=== PATIENT | female | born 1940 | race Caucasian/White ===

== ENCOUNTER 2020-06-23 17:22 | Observation (INO) ==
[2020-06-23 18:02] LABS: Basophils % 0.4 %; Eosinophils # 0.2 K/mcL (0.0-0.6); Eosinophils % 2.8 %; Hematocrit 37.4 % (35.3-44.9); Hemoglobin 12.3 g/dL (11.5-15.4); Immature Granulocytes % 0.4 % (0-4); Lymphocytes # 1.8 K/mcL (0.6-4.6); Lymphocytes % 25.2 %; Mean Corpuscular HGB Conc 32.9 g/dL (31.6-35.5); Mean Corpuscular Hemoglobin 26.9 pg (28.0-33.3); Mean Corpuscular Volume 81.8 fL (83.0-100.0); Mean Platelet Volume 8.5 fL (9.4-12.4); Monocytes # 0.8 K/mcL (0.0-1.3); Monocytes % 10.6 %; Neutrophils # 4.3 K/mcL (1.6-8.9); Platelet Count 252 K/mcL (140-400); Red Blood Count 4.57 M/mcL (3.82-4.97); Segmented Neutrophils % 60.6 %; White Blood Count 7.1 K/mcL (4.3-11.1)
[2020-06-23 18:07] LABS: INR 0.8; Prothrombin Time 9.5 Seconds (9.4-12.1)
[2020-06-23 18:10] LABS: Activated Partial Thrombo Time 30.9 Seconds (26.0-36.0)
[2020-06-23 18:26] LABS: Alanine Aminotransferase 12 Units/L (7-52); Albumin 4.1 g/dL (3.5-5.7); Alkaline Phosphatase 71 Units/L (34-104); Aspartate Amino Transferase 20 Units/L (13-39); BUN/Creatinine Ratio 12 (6-26); Bilirubin,Direct 0.1 mg/dL (0.0-0.2); Bilirubin,Indirect 0.3 mg/dL (0.0-1.0); Bilirubin,Total 0.4 mg/dL (0.3-1.0); Blood Urea Nitrogen 17 mg/dL (8-23); Calcium 9.7 mg/dL (8.6-10.3); Carbon Dioxide 27 mEq/L (23-29); Chloride 96 mEq/L (98-107); Ethanol < 10 mg/dL (Less than 10); Globulin 2.1 g/dL (2.4-3.5); Glucose 125 mg/dL (70-105); Osmolality,Calculated 275 (280-300); Potassium 3.9 mEq/L (3.5-5.1); Sodium 131 mEq/L (136-145); Total Protein 6.2 g/dL (6.4-8.9); Troponin I < 0.03 ng/mL (< 0.04); eGFR For African Americans 43 (> 60); eGFR For Non-African Americans 36 (> 60)
[2020-06-23 18:39] LABS: Thyroid Stimulating Hormone 1.369 mcIU/mL (0.340-5.600)
[2020-06-23 19:18] LABS: Bacteria,Urine Few per hpf (None-Few); Bilirubin,Urine Negative (Negative); Blood,Urine Negative (Negative); Clarity,Urine Clear (Clear); Color,Urine Light-Yellow (Yellow); Glucose,Urine (UA) Normal (Normal); Ketones,Urine Trace mg/dL (Negative); Leukocyte Esterase,Urine Negative (Negative); Nitrite,Urine Negative (Negative); Protein,Urine >=300 mg/dL (Neg-Trace); RBC,Urine 0-3 per hpf (0-3); Specific Gravity,Urine 1.015 (1.010-1.025); Urobilinogen,Urine Normal (Normal); WBC,Urine 0-3 per hpf (0-3)
[2020-06-23 19:24] LABS: Amphetamine Screen,Urine Negative ng/mL (Cutoff=1000); Barbiturate Screen,Urine Negative ng/mL (Cutoff=200); Benzodiazepines Screen,Urine Negative ng/mL (Cutoff=200); Cannabinoid Screen,Urine Negative ng/mL (Cutoff = 50); Cocaine Screen,Urine Negative ng/mL (Cutoff= 300); Opiate Screen,Urine Negative ng/mL (Cutoff=300); Phencyclidine Screen,Urine Negative ng/mL (Cutoff=25)
[2020-06-23] MEDS ORDERED: cloNIDine HCL 0.1 MG TABLET PO ONE (19:44)
[2020-06-23] MEDS ORDERED: Naloxone 0.4 MG/ML INJ IVP PRN (20:28)
[2020-06-23] MEDS ORDERED: Ondansetron 4 MG/2 ML VIAL IVP PRN (20:28)
[2020-06-23] MEDS ORDERED: 0.9 % Sodium Chloride 1,000 ML IVC SCH (20:30)
[2020-06-23] MEDS ORDERED: Acetaminophen 325 MG TABLET PO PRN (21:24)
[2020-06-23 21:49] LABS: Sodium, Urine 86.4 mEq/L
[2020-06-24 02:00] LABS: Basophils % 0.3 %; Eosinophils % 0.4 %; Immature Granulocytes % 0.3 % (0-4); Lymphocytes # 0.9 K/mcL (0.6-4.6); Lymphocytes % 12.7 %; Mean Corpuscular HGB Conc 32.5 g/dL (31.6-35.5); Mean Corpuscular Hemoglobin 27.2 pg (28.0-33.3); Mean Corpuscular Volume 83.6 fL (83.0-100.0); Mean Platelet Volume 8.8 fL (9.4-12.4); Monocytes # 0.5 K/mcL (0.0-1.3); Monocytes % 6.9 %; Neutrophils # 5.8 K/mcL (1.6-8.9); Platelet Count 221 K/mcL (140-400); Red Blood Count 3.83 M/mcL (3.82-4.97); Red Cell Distribution Width 12.9 % (11.5-14.5); Segmented Neutrophils % 79.4 %; White Blood Count 7.3 K/mcL (4.3-11.1)
[2020-06-24 02:01] LABS: Hemoglobin 10.4 g/dL (11.5-15.4)
[2020-06-24 02:20] LABS: Albumin 3.3 g/dL (3.5-5.7); Albumin/Globulin Ratio 1.7 (1.1-2.2); Bilirubin,Total 0.4 mg/dL (0.3-1.0); Globulin 1.9 g/dL (2.4-3.5); Total Protein 5.2 g/dL (6.4-8.9)
[2020-06-24 05:55] LABS: Protein/Creatinine Ratio,Urine 42.15 mg/mg (0.00-0.20)
[2020-06-24] MEDS: Verapamil ER (24 HR) 180 MG TABLET.ER PO SCH (09:01)
[2020-06-24 12:05] LABS: Potassium,Urine 31.4 mEq/L
[2020-06-24 16:35] LABS: Complement C3 79 mg/dL (87-200)
[2020-06-24 17:22] LABS: Creatinine,Urine 97 mg/dL; Microalbumin,Urine > 1350 mg/L
[2020-06-24] MEDS: 0.9 % Sodium Chloride 1,000 ML IVC SCH (18:16)
[2020-06-25 02:00] LABS: Basophils % 0.4 %; Eosinophils # 0.1 K/mcL (0.0-0.6); Eosinophils % 2.6 %; Hematocrit 30.6 % (35.3-44.9); Hemoglobin 10.1 g/dL (11.5-15.4); Immature Granulocytes % 0.2 % (0-4); Lymphocytes # 0.9 K/mcL (0.6-4.6); Lymphocytes % 19.1 %; Mean Corpuscular Hemoglobin 27.1 pg (28.0-33.3); Mean Platelet Volume 8.7 fL (9.4-12.4); Monocytes # 0.6 K/mcL (0.0-1.3); Monocytes % 11.2 %; Neutrophils # 3.3 K/mcL (1.6-8.9); Platelet Count 193 K/mcL (140-400); Red Blood Count 3.73 M/mcL (3.82-4.97); Red Cell Distribution Width 12.9 % (11.5-14.5); Segmented Neutrophils % 66.5 %; White Blood Count 4.9 K/mcL (4.3-11.1)
[2020-06-25 02:21] LABS: Calcium 8.9 mg/dL (8.6-10.3); Potassium 3.9 mEq/L (3.5-5.1)
[2020-06-25] MEDS ORDERED: *HR* Metoprolol 5 MG/5 ML VIAL IVP ONE ×2 (04:52→05:15)
[2020-06-25] MEDS: Verapamil ER (24 HR) 180 MG TABLET.ER PO SCH (07:35)
[2020-06-25] MEDS: 0.9 % Sodium Chloride 1,000 ML IVC SCH (07:45)
[2020-06-25] MEDS: Aspirin 81 MG TAB.CHEW PO SCH (12:30)
[2020-06-26] MEDS: 0.9 % Sodium Chloride 1,000 ML IVC SCH ×2 (00:52→17:35)
[2020-06-26 03:22] LABS: Calcium 8.6 mg/dL (8.6-10.3); Potassium 3.6 mEq/L (3.5-5.1)
[2020-06-26] MEDS ORDERED: *HR* Labetalol 20 MG/4 ML SYRINGE IVP ONE (04:20)
[2020-06-26] MEDS ORDERED: cloNIDine HCL 0.1 MG TABLET PO ONE (05:12)
[2020-06-26] MEDS: Aspirin 81 MG TAB.CHEW PO SCH (08:16)
[2020-06-26] MEDS: Verapamil ER (24 HR) 180 MG TABLET.ER PO SCH (08:16)
[2020-06-27] MEDS ORDERED: cloNIDine HCL 0.1 MG TABLET PO ONE (03:42)
[2020-06-27] MEDS ORDERED: NIFEdipine 10 MG CAPSULE PO ONE (05:41)
[2020-06-27 08:32] LABS: Basophils % 0.2 %; Eosinophils # 0.2 K/mcL (0.0-0.6); Eosinophils % 3.3 %; Hematocrit 31.8 % (35.3-44.9); Hemoglobin 10.3 g/dL (11.5-15.4); Immature Granulocytes % 0.2 % (0-4); Lymphocytes # 0.7 K/mcL (0.6-4.6); Lymphocytes % 13.5 %; Mean Corpuscular HGB Conc 32.4 g/dL (31.6-35.5); Mean Corpuscular Hemoglobin 26.8 pg (28.0-33.3); Mean Corpuscular Volume 82.8 fL (83.0-100.0); Mean Platelet Volume 8.9 fL (9.4-12.4); Monocytes # 0.5 K/mcL (0.0-1.3); Monocytes % 10.8 %; Neutrophils # 3.5 K/mcL (1.6-8.9); Platelet Count 187 K/mcL (140-400); Red Blood Count 3.84 M/mcL (3.82-4.97); Red Cell Distribution Width 13.2 % (11.5-14.5); White Blood Count 4.8 K/mcL (4.3-11.1)
[2020-06-27] MEDS: Aspirin 81 MG TAB.CHEW PO SCH (08:43)
[2020-06-27] MEDS: Verapamil ER (24 HR) 180 MG TABLET.ER PO SCH (08:43)
[2020-06-27 08:51] LABS: Calcium 8.6 mg/dL (8.6-10.3); Potassium 3.7 mEq/L (3.5-5.1)
[2020-06-27] MEDS: 0.9 % Sodium Chloride 1,000 ML IVC SCH (12:19)
[2020-06-27] MEDS ORDERED: Metoprolol XL (24 HR) Succ 25 MG TAB.ER.24H PO SCH (18:00)
[2020-06-28] MEDS ORDERED: NIFEdipine 10 MG CAPSULE PO ONE (00:33)
[2020-06-28] MEDS: 0.9 % Sodium Chloride 1,000 ML IVC SCH ×2 (04:48→21:24)
[2020-06-28 07:11] LABS: Basophils % 0.2 %; Eosinophils # 0.2 K/mcL (0.0-0.6); Eosinophils % 3.1 %; Hematocrit 30.9 % (35.3-44.9); Hemoglobin 10.2 g/dL (11.5-15.4); Immature Granulocytes % 0.2 % (0-4); Lymphocytes # 0.6 K/mcL (0.6-4.6); Lymphocytes % 12.4 %; Mean Corpuscular Hemoglobin 26.8 pg (28.0-33.3); Mean Corpuscular Volume 81.3 fL (83.0-100.0); Mean Platelet Volume 9.3 fL (9.4-12.4); Monocytes # 0.5 K/mcL (0.0-1.3); Monocytes % 9.7 %; Neutrophils # 3.9 K/mcL (1.6-8.9); Platelet Count 194 K/mcL (140-400); Red Cell Distribution Width 13.3 % (11.5-14.5); Segmented Neutrophils % 74.4 %; White Blood Count 5.2 K/mcL (4.3-11.1)
[2020-06-28 07:39] LABS: Calcium 8.8 mg/dL (8.6-10.3); Potassium 3.8 mEq/L (3.5-5.1)
[2020-06-28 08:34] LABS: Total Volume 24 Hour,Urine 2.42 Liters (0.60-1.60)
[2020-06-28] MEDS: Aspirin 81 MG TAB.CHEW PO SCH (08:47)
[2020-06-28] MEDS: Verapamil ER (24 HR) 180 MG TABLET.ER PO SCH (08:47)
[2020-06-28] MEDS ORDERED: Metoprolol XL (24 HR) Succ 25 MG TAB.ER.24H PO SCH (09:00)
[2020-06-28 09:41] LABS: Total Volume 24 Hour,Urine 2.42 Liters (0.60-1.60)
[2020-06-28 09:48] LABS: Protein/Creatinine Ratio,Urine 3.57 mg/mg (0.00-0.20); Sodium, Urine 83.9 mEq/L
[2020-06-28 13:56] LABS: Serine Protease-3 Antibody 0 AU/mL (0-19)
[2020-06-28] MEDS: Metoprolol XL (24 HR) Succ 25 MG TAB.ER.24H PO SCH (21:23)
[2020-06-29 03:37] LABS: Calcium 8.7 mg/dL (8.6-10.3); Potassium 3.7 mEq/L (3.5-5.1)
[2020-06-29] MEDS: Verapamil ER (24 HR) 180 MG TABLET.ER PO SCH (05:19)
[2020-06-29] MEDS: Metoprolol XL (24 HR) Succ 25 MG TAB.ER.24H PO SCH ×2 (08:00→21:22)
[2020-06-29] MEDS: Aspirin 81 MG TAB.CHEW PO SCH (08:00)
[2020-06-29 08:53] LABS: ANA IgG by ELISA NONE DETECTED (None Detected)
[2020-06-29] MEDS: 0.9 % Sodium Chloride 1,000 ML IVC SCH (10:03)
[2020-06-29] MEDS: hydrALAZINE 10 MG TABLET PO SCH ×2 (15:57→23:07)
[2020-06-29 20:06] LABS: APTT (LE Anticoag) 43 sec (32-48); Diluted Russell Viper Venom 30 sec (33-44); PT (LE-Anticoag) 13.8 sec (12.0-15.5)
[2020-06-30 01:21] LABS: Alpha 2 Globulin (PEP) 0.75 g/dL (0.48-1.05); Beta Globulin (PEP) 0.55 g/dL (0.48-1.10)
[2020-06-30] MEDS: Verapamil ER (24 HR) 180 MG TABLET.ER PO SCH (05:08)
[2020-06-30 07:08] LABS: Calcium 9.1 mg/dL (8.6-10.3); Potassium 3.7 mEq/L (3.5-5.1)
[2020-06-30] MEDS: hydrALAZINE 10 MG TABLET PO SCH (07:32)
[2020-06-30] MEDS: Aspirin 81 MG TAB.CHEW PO SCH (07:33)
[2020-06-30] MEDS: Metoprolol XL (24 HR) Succ 25 MG TAB.ER.24H PO SCH (07:33)
[2020-06-30 12:22] LABS: Immunoglobulin A 179 mg/dL (68-408); Immunoglobulin M 62 mg/dL (35-263)
[2020-06-30 12:23] LABS: IFE Reflexed IFE Done; Immunoglobulin G 516 mg/dL (768-1632)
[2020-06-30] MEDS: hydrALAZINE 25 MG TABLET PO SCH ×2 (14:05→20:18)
[2020-07-01] MEDS ORDERED: hydrALAZINE 25 MG TABLET PO ONE (00:21)
[2020-07-01 02:19] LABS: Calcium 8.9 mg/dL (8.6-10.3); Potassium 3.7 mEq/L (3.5-5.1)
[2020-07-01] MEDS: Aspirin 81 MG TAB.CHEW PO SCH (07:52)
[2020-07-01] MEDS: Verapamil ER (24 HR) 180 MG TABLET.ER PO SCH (07:52)
[2020-07-01] MEDS: hydrALAZINE 25 MG TABLET PO SCH (07:52)
[2020-07-01] MEDS ORDERED: *HR* Midazolam HCl 2 MG/2 ML VIAL IVP ONE (09:42)
[2020-07-01] MEDS ORDERED: *HR* FentaNYL (PF) 100 MCG/2 ML VIAL IVP ONE (09:42)
[2020-07-01] MEDS ORDERED: 0.9 % Sodium Chloride 500 ML ONE (09:53)
[2020-07-01 13:05] LABS: Hematocrit 33.9 % (35.3-44.9); Hemoglobin 11.2 g/dL (11.5-15.4)
[2020-07-01 15:42] VITALS: BP 154/67
== END 2020-07-01 18:10 | disposition home health service (06) ==
LOC: EMEROOARM 17:22 → 3BNU 17:22 → SUATTDRO 20:54 → 3BNU 21:13 → 2ANU 06-30 18:23
PROVIDERS: ADMIT Student in an Organized Health Care Education/Training Program; ATTEND Internal Medicine
PROC: IRLIVER (2020-06-29 12:00)

== ENCOUNTER 2021-04-03 09:44 | Inpatient (IN) ==
[2021-04-03 11:20] LABS: Basophils % 0.5 %; Eosinophils # 0.1 K/mcL (0.0-0.6); Eosinophils % 1.9 %; Hematocrit 30.5 % (35.3-44.9); Hemoglobin 9.9 g/dL (11.5-15.4); Immature Granulocytes % 0.3 % (0-4); Lymphocytes # 0.7 K/mcL (0.6-4.6); Lymphocytes % 18.3 %; Mean Corpuscular HGB Conc 32.5 g/dL (31.6-35.5); Mean Corpuscular Hemoglobin 29.1 pg (28.0-33.3); Mean Corpuscular Volume 89.7 fL (83.0-100.0); Monocytes # 0.5 K/mcL (0.0-1.3); Monocytes % 11.9 %; Neutrophils # 2.5 K/mcL (1.6-8.9); Platelet Count 157 K/mcL (140-400); Red Cell Distribution Width 13.5 % (11.5-14.5); Segmented Neutrophils % 67.1 %; White Blood Count 3.8 K/mcL (4.3-11.1)
[2021-04-03 11:40] LABS: Alanine Aminotransferase 15 Units/L (7-52); Albumin 3.6 g/dL (3.5-5.7); Albumin/Globulin Ratio 1.6 (1.1-2.2); Alkaline Phosphatase 42 Units/L (34-104); Aspartate Amino Transferase 19 Units/L (13-39); BUN/Creatinine Ratio 17 (6-26); Bilirubin,Direct 0.1 mg/dL (0.0-0.2); Bilirubin,Indirect 0.3 mg/dL (0.0-1.0); Bilirubin,Total 0.4 mg/dL (0.3-1.0); Blood Urea Nitrogen 46 mg/dL (8-23); Calcium 9.4 mg/dL (8.6-10.3); Carbon Dioxide 18 mEq/L (23-29); Chloride 102 mEq/L (98-107); Globulin 2.2 g/dL (2.4-3.5); Glucose 87 mg/dL (70-105); Osmolality,Calculated 285 (280-300); Potassium 4.6 mEq/L (3.5-5.1); Sodium 132 mEq/L (136-145); Total Protein 5.8 g/dL (6.4-8.9); eGFR For African Americans 20 (> 60); eGFR For Non-African Americans 16 (> 60)
[2021-04-03 11:48] LABS: Troponin I < 0.03 ng/mL (< 0.04)
[2021-04-03] MEDS ORDERED: carvediloL 6.25 MG TABLET PO ONE (13:33)
[2021-04-03 14:41] LABS: Bilirubin,Urine Negative (Negative); Blood,Urine Trace (Negative); Clarity,Urine Clear (Clear); Color,Urine Light-Yellow (Yellow); Glucose,Urine (UA) Normal (Normal); Ketones,Urine Trace mg/dL (Negative); Leukocyte Esterase,Urine Negative (Negative); Mucus,Urine Few per lpf (None-Few); Nitrite,Urine Negative (Negative); PH,Urine 6.5 pH Units (5.0-8.0); Protein,Urine >=300 mg/dL (Neg-Trace); RBC,Urine 0-3 per hpf (0-3); Renal Epithelial Cells,Urine Few per hpf (None-Few); Specific Gravity,Urine 1.013 (1.010-1.025); Squamous Epithelial Cell,Urine Few per hpf (None-Few); Transitional Epi Cells,Urine Few per hpf (None-Few); Urobilinogen,Urine Normal (Normal)
[2021-04-03] MEDS ORDERED: Naloxone 0.4 MG/ML INJ IVP PRN (15:26)
[2021-04-03] MEDS ORDERED: cloNIDine HCL 0.1 MG TABLET PO ONE (17:18)
[2021-04-03] MEDS ORDERED: Verapamil ER (24 HR) 180 MG TABLET.ER PO SCH (17:30)
[2021-04-03 17:39] LABS: Prothrombin Time 11.2 Seconds (9.4-12.1)
[2021-04-03 17:41] LABS: Activated Partial Thrombo Time 28.5 Seconds (26.0-36.0)
[2021-04-03] MEDS: *HR* Heparin 5,000 UNIT/ML VIAL SQ SCH (17:48)
[2021-04-03] MEDS: hydrALAZINE 25 MG TABLET PO SCH (17:48)
[2021-04-03 18:00] LABS: Thyroid Stimulating Hormone 2.748 mcIU/mL (0.340-5.600)
[2021-04-03 18:12] LABS: Folate > 22.3 ng/mL (3.0-16.0); Vitamin B12 772 pg/mL (250-1100)
[2021-04-03] MEDS: carvediloL 6.25 MG TABLET PO SCH (20:43)
[2021-04-03] MEDS: Niacin (24 HR) 500 MG TAB.ER.24H PO SCH (20:53)
[2021-04-03] MEDS ORDERED: 0.9 % Sodium Chloride 1,000 ML ONE (22:42)
[2021-04-03] MEDS ORDERED: *HR* Atropine Sulfate 1 MG/10 ML SYRINGE IVP STA (22:42)
[2021-04-03] MEDS ORDERED: 0.9 % Sodium Chloride 1,000 ML IV ONE (22:43)
[2021-04-03] MEDS ORDERED: *HR* Atropine Sulfate 1 MG/10 ML SYRINGE ONE (22:43)
[2021-04-03] MEDS: Ondansetron 4 MG/2 ML VIAL IVP PRN (23:26)
[2021-04-03 23:33] LABS: Hematocrit 25.6 % (35.3-44.9); Hemoglobin 8.6 g/dL (11.5-15.4); Mean Corpuscular HGB Conc 33.6 g/dL (31.6-35.5); Mean Corpuscular Hemoglobin 29.8 pg (28.0-33.3); Mean Corpuscular Volume 88.6 fL (83.0-100.0); Mean Platelet Volume 8.7 fL (9.4-12.4); Platelet Count 160 K/mcL (140-400); Red Blood Count 2.89 M/mcL (3.82-4.97); Red Cell Distribution Width 13.4 % (11.5-14.5); White Blood Count 5.9 K/mcL (4.3-11.1)
[2021-04-03] MEDS: 0.9 % Sodium Chloride 1,000 ML IVC SCH (23:55)
[2021-04-03 23:56] LABS: BUN/Creatinine Ratio 16 (6-26); Blood Urea Nitrogen 49 mg/dL (8-23); Calcium 8.4 mg/dL (8.6-10.3); Carbon Dioxide 16 mEq/L (23-29); Chloride 102 mEq/L (98-107); Glucose 116 mg/dL (70-105); Osmolality,Calculated 280 (280-300); Potassium 4.6 mEq/L (3.5-5.1); Sodium 128 mEq/L (136-145); eGFR For African Americans 18 (> 60); eGFR For Non-African Americans 15 (> 60)
[2021-04-04] MEDS: hydrALAZINE 25 MG TABLET PO SCH ×3 (00:18→16:28)
[2021-04-04 00:38] LABS: Troponin I < 0.03 ng/mL (< 0.04)
[2021-04-04] MEDS ORDERED: Perflutren Lipid Microsphere 1.3 ML in 0.9 % Sodium Chloride 8.7 ML IVP PRN (04:25)
[2021-04-04] MEDS: *HR* Heparin 5,000 UNIT/ML VIAL SQ SCH ×2 (05:10→16:27)
[2021-04-04 08:06] LABS: Basophils % 0.2 %; Eosinophils % 0.2 %; Hematocrit 25.6 % (35.3-44.9); Hemoglobin 8.4 g/dL (11.5-15.4); Immature Granulocytes % 0.2 % (0-4); Lymphocytes # 0.6 K/mcL (0.6-4.6); Mean Corpuscular HGB Conc 32.8 g/dL (31.6-35.5); Mean Corpuscular Hemoglobin 29.9 pg (28.0-33.3); Mean Corpuscular Volume 91.1 fL (83.0-100.0); Mean Platelet Volume 9.3 fL (9.4-12.4); Monocytes # 0.2 K/mcL (0.0-1.3); Monocytes % 4.6 %; Neutrophils # 3.8 K/mcL (1.6-8.9); Platelet Count 139 K/mcL (140-400); Red Blood Count 2.81 M/mcL (3.82-4.97); Red Cell Distribution Width 13.4 % (11.5-14.5); Segmented Neutrophils % 82.8 %; White Blood Count 4.6 K/mcL (4.3-11.1)
[2021-04-04 08:40] LABS: Uric Acid 9.7 mg/dL (2.3-7.6)
[2021-04-04 08:42] LABS: Calcium 8.2 mg/dL (8.6-10.3); Potassium 5.3 mEq/L (3.5-5.1)
[2021-04-04] MEDS: Aspirin 81 MG TAB.CHEW PO SCH (09:50)
[2021-04-04] MEDS: carvediloL 6.25 MG TABLET PO SCH ×2 (09:50→16:28)
[2021-04-04] MEDS: Niacin (24 HR) 500 MG TAB.ER.24H PO SCH ×2 (09:50→20:05)
[2021-04-04] MEDS: 0.9 % Sodium Chloride 1,000 ML IVC SCH ×2 (09:51→20:05)
[2021-04-04 10:42] LABS: Hepatitis B Surface Antigen Nonreactive (Nonreactive)
[2021-04-04 11:11] LABS: Hepatitis B Core IgM Nonreactive (Nonreactive)
[2021-04-04 11:12] LABS: Hepatitis A Antibody IgM Nonreactive (Nonreactive); Hepatitis C Virus Antibody Nonreactive (Nonreactive)
[2021-04-04] MEDS ORDERED: amLODIPine 5 MG TABLET PO SCH (12:58)
[2021-04-04 13:36] LABS: Vitamin D 25 Hydroxy 28 ng/mL (30-80)
[2021-04-04 14:23] LABS: Bacteria,Urine Many per hpf (None-Few); Bilirubin,Urine Negative (Negative); Blood,Urine Negative (Negative); Clarity,Urine Turbid (Clear); Color,Urine Yellow (Yellow); Glucose,Urine (UA) Normal (Normal); Hyaline Casts,Urine Few per lpf (None Seen); Ketones,Urine Trace mg/dL (Negative); Leukocyte Esterase,Urine Large (Negative); Mucus,Urine Few per lpf (None-Few); Nitrite,Urine Negative (Negative); Protein,Urine >=600 mg/dL (Neg-Trace); RBC,Urine 0-3 per hpf (0-3); Specific Gravity,Urine 1.012 (1.010-1.025); Squamous Epithelial Cell,Urine Few per hpf (None-Few); Urobilinogen,Urine Normal (Normal); WBC,Urine 50-100 per hpf (0-3)
[2021-04-04] MEDS ORDERED: Ergocalciferol (VIT D2) 50,000 UNIT (1.25MG) CAP PO SCH (14:30)
[2021-04-04 18:56] LABS: Protein/Creatinine Ratio,Urine 5.8 mg/mg (0.00-0.20); Sodium, Urine 42.8 mEq/L
[2021-04-05] MEDS: Ondansetron 4 MG/2 ML VIAL IVP PRN ×3 (03:37→14:35)
[2021-04-05] MEDS: 0.9 % Sodium Chloride 1,000 ML IVC SCH ×2 (04:11→14:41)
[2021-04-05] MEDS: hydrALAZINE 25 MG TABLET PO SCH ×3 (04:11→21:00)
[2021-04-05] MEDS: *HR* Heparin 5,000 UNIT/ML VIAL SQ SCH ×2 (05:14→18:19)
[2021-04-05 05:54] LABS: Hematocrit 29.6 % (35.3-44.9); Hemoglobin 9.8 g/dL (11.5-15.4); Mean Corpuscular HGB Conc 33.1 g/dL (31.6-35.5); Mean Corpuscular Hemoglobin 29.8 pg (28.0-33.3); Mean Platelet Volume 8.6 fL (9.4-12.4); Platelet Count 147 K/mcL (140-400); Red Blood Count 3.29 M/mcL (3.82-4.97); Red Cell Distribution Width 13.9 % (11.5-14.5); White Blood Count 5.1 K/mcL (4.3-11.1)
[2021-04-05 06:12] LABS: Calcium 8.4 mg/dL (8.6-10.3)
[2021-04-05] MEDS ORDERED: *HR* Labetalol 20 MG/4 ML SYRINGE IVP ONE (06:24)
[2021-04-05] MEDS: carvediloL 6.25 MG TABLET PO SCH ×2 (08:48→20:57)
[2021-04-05] MEDS: Aspirin 81 MG TAB.CHEW PO SCH (08:49)
[2021-04-05] MEDS: Niacin (24 HR) 500 MG TAB.ER.24H PO SCH ×2 (08:49→20:58)
[2021-04-05] MEDS: amLODIPine 5 MG TABLET PO SCH (11:46)
[2021-04-05] MEDS ORDERED: *HR* LORazepam 0.5 MG TABLET PO PRN (12:11)
[2021-04-05] MEDS: cefTRIAXone 1,000 MG in Water for inj. (sterile) 10 ML IVP SCH (14:34)
[2021-04-05] MEDS ORDERED: hydrALAZINE 25 MG TABLET PO SCH (15:00)
[2021-04-05] MEDS ORDERED: Prochlorperazine 10 MG/2 ML VIAL IVP ONE (17:59)
[2021-04-05 21:43] LABS: Basophils % 0.2 %; Eosinophils % 0.2 %; Hematocrit 30.5 % (35.3-44.9); Hemoglobin 9.8 g/dL (11.5-15.4); Immature Granulocytes % 0.4 % (0-4); Lymphocytes # 0.6 K/mcL (0.6-4.6); Lymphocytes % 14.1 %; Mean Corpuscular HGB Conc 32.1 g/dL (31.6-35.5); Mean Corpuscular Hemoglobin 29.5 pg (28.0-33.3); Mean Corpuscular Volume 91.9 fL (83.0-100.0); Mean Platelet Volume 8.4 fL (9.4-12.4); Monocytes # 0.3 K/mcL (0.0-1.3); Monocytes % 7.2 %; Neutrophils # 3.5 K/mcL (1.6-8.9); Platelet Count 143 K/mcL (140-400); Red Blood Count 3.32 M/mcL (3.82-4.97); Red Cell Distribution Width 14.6 % (11.5-14.5); Segmented Neutrophils % 77.9 %; White Blood Count 4.5 K/mcL (4.3-11.1)
[2021-04-05 22:04] LABS: Calcium 8.5 mg/dL (8.6-10.3); Potassium 4.9 mEq/L (3.5-5.1)
[2021-04-06 02:12] LABS: Calcium 8.5 mg/dL (8.6-10.3); Potassium 4.9 mEq/L (3.5-5.1)
[2021-04-06] MEDS: *HR* Heparin 5,000 UNIT/ML VIAL SQ SCH ×2 (05:20→16:37)
[2021-04-06] MEDS: Aspirin 81 MG TAB.CHEW PO SCH (08:50)
[2021-04-06] MEDS: carvediloL 6.25 MG TABLET PO SCH (08:51)
[2021-04-06] MEDS: hydrALAZINE 25 MG TABLET PO SCH ×3 (08:51→20:35)
[2021-04-06] MEDS: Niacin (24 HR) 500 MG TAB.ER.24H PO SCH ×2 (08:51→20:35)
[2021-04-06] MEDS: amLODIPine 5 MG TABLET PO SCH (11:35)
[2021-04-06] MEDS: cefTRIAXone 1,000 MG in Water for inj. (sterile) 10 ML IVP SCH (14:14)
[2021-04-06] MEDS: Ondansetron 4 MG/2 ML VIAL IVP PRN (16:36)
[2021-04-06] MEDS: carvediloL 25 MG TABLET PO SCH (16:37)
[2021-04-07] MEDS: *HR* Heparin 5,000 UNIT/ML VIAL SQ SCH ×2 (05:28→16:25)
[2021-04-07 07:23] LABS: Calcium 8.7 mg/dL (8.6-10.3); Potassium 4.5 mEq/L (3.5-5.1)
[2021-04-07] MEDS ORDERED: 0.9 % Sodium Chloride 1,000 ML IVC SCH (08:00)
[2021-04-07] MEDS: Aspirin 81 MG TAB.CHEW PO SCH (08:15)
[2021-04-07] MEDS: Niacin (24 HR) 500 MG TAB.ER.24H PO SCH ×2 (08:15→19:34)
[2021-04-07] MEDS: hydrALAZINE 25 MG TABLET PO SCH ×3 (08:15→19:34)
[2021-04-07] MEDS: carvediloL 25 MG TABLET PO SCH ×2 (08:16→16:25)
[2021-04-07] MEDS ORDERED: cloNIDine HCL 0.1 MG TABLET PO SCH (09:00)
[2021-04-07] MEDS: amLODIPine 5 MG TABLET PO SCH (11:01)
[2021-04-07] MEDS ORDERED: cloNIDine HCL 0.1 MG TABLET PO PRN (11:25)
[2021-04-07] MEDS: cefTRIAXone 1,000 MG in Water for inj. (sterile) 10 ML IVP SCH (16:26)
[2021-04-08] MEDS: *HR* Heparin 5,000 UNIT/ML VIAL SQ SCH (05:28)
[2021-04-08 07:35] VITALS: BP 173/71
[2021-04-08 09:29] LABS: Basophils % 0.2 %; Eosinophils # 0.1 K/mcL (0.0-0.6); Eosinophils % 1.6 %; Hematocrit 29.7 % (35.3-44.9); Hemoglobin 9.5 g/dL (11.5-15.4); Immature Granulocytes % 0.5 % (0-4); Lymphocytes # 0.5 K/mcL (0.6-4.6); Lymphocytes % 11.2 %; Mean Corpuscular Hemoglobin 28.8 pg (28.0-33.3); Monocytes # 0.5 K/mcL (0.0-1.3); Monocytes % 11.5 %; Neutrophils # 3.3 K/mcL (1.6-8.9); Platelet Count 134 K/mcL (140-400); Red Cell Distribution Width 14.7 % (11.5-14.5); White Blood Count 4.4 K/mcL (4.3-11.1)
[2021-04-08 09:49] LABS: Calcium 8.9 mg/dL (8.6-10.3); Potassium 4.4 mEq/L (3.5-5.1)
[2021-04-08] MEDS: hydrALAZINE 25 MG TABLET PO SCH (09:51)
[2021-04-08] MEDS: Niacin (24 HR) 500 MG TAB.ER.24H PO SCH (09:51)
[2021-04-08] MEDS: Aspirin 81 MG TAB.CHEW PO SCH (09:52)
[2021-04-08] MEDS: carvediloL 25 MG TABLET PO SCH (09:52)
== END 2021-04-08 11:28 | disposition home or self-care (01) | DRG 682 ==
LOC: 2ANU 09:44 → EMEROOARM 09:44 → SUATTDRO 15:04 → 2ANU 16:30
PROVIDERS: ADMIT Internal Medicine; ATTEND Internal Medicine

== ENCOUNTER 2021-04-09 12:59 | Observation (INO) ==
[2021-04-09 14:10] LABS: Basophils % 0.3 %; Eosinophils # 0.1 K/mcL (0.0-0.6); Eosinophils % 1.5 %; Hemoglobin 9.5 g/dL (11.5-15.4); Immature Granulocytes % 0.5 % (0-4); Lymphocytes # 0.5 K/mcL (0.6-4.6); Lymphocytes % 13.3 %; Mean Corpuscular HGB Conc 32.8 g/dL (31.6-35.5); Mean Corpuscular Hemoglobin 29.8 pg (28.0-33.3); Mean Corpuscular Volume 90.9 fL (83.0-100.0); Mean Platelet Volume 9.1 fL (9.4-12.4); Monocytes # 0.6 K/mcL (0.0-1.3); Monocytes % 15.1 %; Neutrophils # 2.7 K/mcL (1.6-8.9); Platelet Count 134 K/mcL (140-400); Red Blood Count 3.19 M/mcL (3.82-4.97); Red Cell Distribution Width 14.6 % (11.5-14.5); Segmented Neutrophils % 69.3 %; White Blood Count 3.9 K/mcL (4.3-11.1)
[2021-04-09 14:18] LABS: Bacteria,Urine Few per hpf (None-Few); Bilirubin,Urine Negative (Negative); Blood,Urine Negative (Negative); Clarity,Urine Turbid (Clear); Color,Urine Light-Yellow (Yellow); Glucose,Urine (UA) Normal (Normal); Ketones,Urine Negative (Negative); Leukocyte Esterase,Urine Moderate (Negative); Mucus,Urine Few per lpf (None-Few); Nitrite,Urine Negative (Negative); Protein,Urine >=300 mg/dL (Neg-Trace); RBC,Urine 0-3 per hpf (0-3); Specific Gravity,Urine 1.014 (1.010-1.025); Squamous Epithelial Cell,Urine Few per hpf (None-Few); Urobilinogen,Urine Normal (Normal); WBC,Urine 15-30 per hpf (0-3)
[2021-04-09 14:26] LABS: Amphetamine Screen,Urine Negative ng/mL (Cutoff=1000); Barbiturate Screen,Urine Negative ng/mL (Cutoff=200); Benzodiazepines Screen,Urine Negative ng/mL (Cutoff=200); Cannabinoid Screen,Urine Negative ng/mL (Cutoff = 50); Cocaine Screen,Urine Negative ng/mL (Cutoff= 300); Opiate Screen,Urine Negative ng/mL (Cutoff=300); Phencyclidine Screen,Urine Negative ng/mL (Cutoff=25)
[2021-04-09 14:32] LABS: Alanine Aminotransferase 12 Units/L (7-52); Albumin 3.1 g/dL (3.5-5.7); Albumin/Globulin Ratio 1.7 (1.1-2.2); Alkaline Phosphatase 39 Units/L (34-104); Aspartate Amino Transferase 15 Units/L (13-39); BUN/Creatinine Ratio 11 (6-26); Bilirubin,Indirect 0.3 mg/dL (0.0-1.0); Bilirubin,Total 0.3 mg/dL (0.3-1.0); Blood Urea Nitrogen 34 mg/dL (8-23); Calcium 8.8 mg/dL (8.6-10.3); Carbon Dioxide 16 mEq/L (23-29); Chloride 104 mEq/L (98-107); Ethanol < 10 mg/dL (Less than 10); Globulin 1.8 g/dL (2.4-3.5); Glucose 119 mg/dL (70-105); Osmolality,Calculated 281 (280-300); Potassium 4.2 mEq/L (3.5-5.1); Sodium 131 mEq/L (136-145); Total Protein 4.9 g/dL (6.4-8.9); Troponin I < 0.03 ng/mL (< 0.04); eGFR For African Americans 17 (> 60); eGFR For Non-African Americans 14 (> 60)
[2021-04-09] MEDS ORDERED: Ondansetron 4 MG/2 ML VIAL IVP ONE (14:33)
[2021-04-09] MEDS ORDERED: Piperacillin/Tazobactam 3.375 GM in 0.9 % Sodium Chloride Mini Bag 100 ML IVPB ONE (15:00)
[2021-04-09] MEDS ORDERED: Ondansetron 4 MG/2 ML VIAL IVP PRN (17:02)
[2021-04-09] MEDS ORDERED: Naloxone 0.4 MG/ML INJ IVP PRN (17:02)
[2021-04-09] MEDS ORDERED: Acetaminophen 325 MG TABLET PO PRN (17:10)
[2021-04-09] MEDS: 0.9 % Sodium Chloride 1,000 ML IVC SCH (18:05)
[2021-04-09] MEDS: hydrALAZINE 25 MG TABLET PO SCH (20:31)
[2021-04-10] MEDS: Piperacillin/Tazobactam 3.375 GM in 0.9 % Sodium Chloride Mini Bag 100 ML IVPB SCH ×3 (00:20→20:05)
[2021-04-10] MEDS: carvediloL 25 MG TABLET PO SCH ×2 (07:28→15:52)
[2021-04-10] MEDS: hydrALAZINE 25 MG TABLET PO SCH ×3 (07:28→20:05)
[2021-04-10 07:48] LABS: Basophils % 0.3 %; Eosinophils # 0.1 K/mcL (0.0-0.6); Eosinophils % 2.2 %; Hematocrit 27.7 % (35.3-44.9); Hemoglobin 8.7 g/dL (11.5-15.4); Immature Granulocytes % 0.8 % (0-4); Lymphocytes # 0.6 K/mcL (0.6-4.6); Lymphocytes % 15.7 %; Mean Corpuscular HGB Conc 31.4 g/dL (31.6-35.5); Mean Corpuscular Hemoglobin 28.5 pg (28.0-33.3); Mean Corpuscular Volume 90.8 fL (83.0-100.0); Mean Platelet Volume 8.9 fL (9.4-12.4); Monocytes # 0.5 K/mcL (0.0-1.3); Neutrophils # 2.4 K/mcL (1.6-8.9); Platelet Count 134 K/mcL (140-400); Red Blood Count 3.05 M/mcL (3.82-4.97); Red Cell Distribution Width 14.6 % (11.5-14.5); White Blood Count 3.6 K/mcL (4.3-11.1)
[2021-04-10 07:58] LABS: Calcium 8.5 mg/dL (8.6-10.3); Potassium 4.3 mEq/L (3.5-5.1)
[2021-04-10] MEDS: 0.9 % Sodium Chloride 1,000 ML IVC SCH (12:22)
[2021-04-11 01:28] LABS: Eosinophils # 0.1 K/mcL (0.0-0.6); Hematocrit 25.6 % (35.3-44.9); Hemoglobin 8.4 g/dL (11.5-15.4); Immature Granulocytes % 0.5 % (0-4); Lymphocytes # 0.7 K/mcL (0.6-4.6); Lymphocytes % 17.7 %; Mean Corpuscular HGB Conc 32.8 g/dL (31.6-35.5); Mean Corpuscular Hemoglobin 29.7 pg (28.0-33.3); Mean Corpuscular Volume 90.5 fL (83.0-100.0); Mean Platelet Volume 8.9 fL (9.4-12.4); Monocytes # 0.6 K/mcL (0.0-1.3); Monocytes % 15.4 %; Neutrophils # 2.5 K/mcL (1.6-8.9); Platelet Count 124 K/mcL (140-400); Red Blood Count 2.83 M/mcL (3.82-4.97); Red Cell Distribution Width 14.6 % (11.5-14.5); Segmented Neutrophils % 63.4 %
[2021-04-11 01:43] LABS: Calcium 8.1 mg/dL (8.6-10.3); Potassium 4.1 mEq/L (3.5-5.1)
[2021-04-11] MEDS: Aspirin 81 MG TAB.CHEW PO SCH (07:11)
[2021-04-11] MEDS: hydrALAZINE 25 MG TABLET PO SCH ×3 (07:11→20:19)
[2021-04-11] MEDS: Furosemide 20 MG TABLET PO SCH (07:11)
[2021-04-11] MEDS: carvediloL 25 MG TABLET PO SCH ×2 (07:12→15:10)
[2021-04-11] MEDS: Piperacillin/Tazobactam 3.375 GM in 0.9 % Sodium Chloride Mini Bag 100 ML IVPB SCH ×2 (07:12→20:17)
[2021-04-11] MEDS ORDERED: amLODIPine 5 MG TABLET PO SCH (12:00)
[2021-04-12 05:32] LABS: Basophils % 0.2 %; Eosinophils # 0.2 K/mcL (0.0-0.6); Hemoglobin 9.1 g/dL (11.5-15.4); Immature Granulocytes % 0.4 % (0-4); Lymphocytes # 0.7 K/mcL (0.6-4.6); Lymphocytes % 12.8 %; Mean Corpuscular HGB Conc 32.5 g/dL (31.6-35.5); Mean Corpuscular Hemoglobin 29.4 pg (28.0-33.3); Mean Corpuscular Volume 90.3 fL (83.0-100.0); Mean Platelet Volume 9.3 fL (9.4-12.4); Monocytes # 0.8 K/mcL (0.0-1.3); Monocytes % 14.5 %; Neutrophils # 3.7 K/mcL (1.6-8.9); Platelet Count 130 K/mcL (140-400); Red Cell Distribution Width 14.6 % (11.5-14.5); Segmented Neutrophils % 69.1 %; White Blood Count 5.4 K/mcL (4.3-11.1)
[2021-04-12 05:41] LABS: Calcium 8.4 mg/dL (8.6-10.3); Potassium 3.8 mEq/L (3.5-5.1)
[2021-04-12] MEDS ORDERED: *HR* Labetalol 20 MG/4 ML SYRINGE IVP ONE (07:39)
[2021-04-12] MEDS: Aspirin 81 MG TAB.CHEW PO SCH (07:51)
[2021-04-12] MEDS: Furosemide 20 MG TABLET PO SCH (07:52)
[2021-04-12] MEDS: Piperacillin/Tazobactam 3.375 GM in 0.9 % Sodium Chloride Mini Bag 100 ML IVPB SCH ×2 (07:52→20:37)
[2021-04-12] MEDS: carvediloL 25 MG TABLET PO SCH ×2 (07:52→18:32)
[2021-04-12] MEDS: hydrALAZINE 25 MG TABLET PO SCH ×4 (07:52→20:37)
[2021-04-12] MEDS ORDERED: *HR* Labetalol 20 MG/4 ML SYRINGE IVP PRN (08:19)
[2021-04-12] MEDS: Isosorbide MONOnitrate (24 HR) 30 MG TAB.ER.24H PO SCH (10:29)
[2021-04-13] MEDS: Isosorbide MONOnitrate (24 HR) 30 MG TAB.ER.24H PO SCH (07:54)
[2021-04-13] MEDS: hydrALAZINE 25 MG TABLET PO SCH (07:54)
[2021-04-13] MEDS: carvediloL 25 MG TABLET PO SCH (07:54)
[2021-04-13] MEDS: Aspirin 81 MG TAB.CHEW PO SCH (07:55)
[2021-04-13] MEDS: Piperacillin/Tazobactam 3.375 GM in 0.9 % Sodium Chloride Mini Bag 100 ML IVPB SCH (07:55)
[2021-04-13] MEDS: Furosemide 20 MG TABLET PO SCH (07:55)
[2021-04-13 08:17] LABS: Calcium 8.2 mg/dL (8.6-10.3); Potassium 3.9 mEq/L (3.5-5.1)
[2021-04-13 09:18] VITALS: BP 173/68
== END 2021-04-13 13:25 | disposition home health service (06) ==
LOC: EMEROOARM 12:59 → 3ANU 12:59 → SUATTDRO 16:33 → 3ANU 17:29
PROVIDERS: ADMIT Internal Medicine; ATTEND Family Medicine

== ENCOUNTER 2021-04-26 14:55 | Observation (INO) ==
[2021-04-26 15:49] LABS: VBG Ionized Calcium 1.22 mmol/L (1.15-1.35)
[2021-04-26 15:52] LABS: Basophils % 0.5 %; Eosinophils # 0.1 K/mcL (0.0-0.6); Eosinophils % 2.9 %; Hematocrit 27.3 % (35.3-44.9); Hemoglobin 8.8 g/dL (11.5-15.4); Immature Granulocytes % 0.5 % (0-4); Lymphocytes # 0.5 K/mcL (0.6-4.6); Lymphocytes % 14.1 %; Mean Corpuscular HGB Conc 32.2 g/dL (31.6-35.5); Mean Corpuscular Hemoglobin 29.8 pg (28.0-33.3); Mean Corpuscular Volume 92.5 fL (83.0-100.0); Mean Platelet Volume 9.1 fL (9.4-12.4); Monocytes # 0.6 K/mcL (0.0-1.3); Monocytes % 15.2 %; Neutrophils # 2.5 K/mcL (1.6-8.9); Platelet Count 226 K/mcL (140-400); Red Blood Count 2.95 M/mcL (3.82-4.97); Red Cell Distribution Width 13.2 % (11.5-14.5); Segmented Neutrophils % 66.8 %; White Blood Count 3.8 K/mcL (4.3-11.1)
[2021-04-26 16:13] LABS: Alanine Aminotransferase 6 Units/L (7-52); Albumin 3.3 g/dL (3.5-5.7); Albumin/Globulin Ratio 1.5 (1.1-2.2); Alkaline Phosphatase 48 Units/L (34-104); Aspartate Amino Transferase 15 Units/L (13-39); BUN/Creatinine Ratio 18 (6-26); Bilirubin,Total 0.3 mg/dL (0.3-1.0); Blood Urea Nitrogen 56 mg/dL (8-23); Calcium 8.9 mg/dL (8.6-10.3); Carbon Dioxide 29 mEq/L (23-29); Chloride 96 mEq/L (98-107); Creatine Kinase 30 Units/L (30-223); Globulin 2.2 g/dL (2.4-3.5); Glucose 116 mg/dL (70-105); Magnesium 1.8 mg/dL (1.6-2.6); Osmolality,Calculated 292 (280-300); Phosphorous 4.7 mg/dL (2.7-4.5); Potassium 4.3 mEq/L (3.5-5.1); Sodium 133 mEq/L (136-145); Total Protein 5.5 g/dL (6.4-8.9); Troponin I < 0.03 ng/mL (< 0.04); eGFR For African Americans 17 (> 60); eGFR For Non-African Americans 14 (> 60)
[2021-04-26 16:25] LABS: Thyroid Stimulating Hormone 3.044 mcIU/mL (0.340-5.600)
[2021-04-26] MEDS ORDERED: Furosemide 40 MG/4 ML VIAL IVP ONE (16:37)
[2021-04-26] MEDS ORDERED: Naloxone 0.4 MG/ML INJ IVP PRN (17:25)
[2021-04-26] MEDS ORDERED: Melatonin 3 MG TABLET PO PRN (17:25)
[2021-04-26] MEDS ORDERED: Ondansetron ODT 4 MG TAB.RAPDIS SL PRN (17:25)
[2021-04-26] MEDS ORDERED: Acetaminophen 325 MG TABLET PO PRN (17:25)
[2021-04-26] MEDS ORDERED: Mag Hydrox/Al Hydrox/Simeth 30 ML UDC PO PRN (17:25)
[2021-04-26] MEDS ORDERED: Perflutren Lipid Microsphere 1.3 ML in 0.9 % Sodium Chloride 8.7 ML IVP PRN (17:27)
[2021-04-26 18:03] LABS: Bilirubin,Urine Negative (Negative); Blood,Urine Negative (Negative); Clarity,Urine Clear (Clear); Color,Urine Colorless (Yellow); Glucose,Urine (UA) Normal (Normal); Hyaline Casts,Urine Few per lpf (None Seen); Ketones,Urine Negative (Negative); Leukocyte Esterase,Urine Negative (Negative); Nitrite,Urine Negative (Negative); Protein,Urine 100 mg/dL (Neg-Trace); RBC,Urine 0-3 per hpf (0-3); Urobilinogen,Urine Normal (Normal); WBC,Urine 0-3 per hpf (0-3)
[2021-04-27 02:14] LABS: Hematocrit 24.9 % (35.3-44.9); Hemoglobin 8.2 g/dL (11.5-15.4); Mean Corpuscular HGB Conc 32.9 g/dL (31.6-35.5); Mean Corpuscular Volume 91.2 fL (83.0-100.0); Platelet Count 210 K/mcL (140-400); Red Blood Count 2.73 M/mcL (3.82-4.97); Red Cell Distribution Width 13.2 % (11.5-14.5); White Blood Count 3.3 K/mcL (4.3-11.1)
[2021-04-27 02:50] LABS: Calcium 8.9 mg/dL (8.6-10.3); Potassium 3.8 mEq/L (3.5-5.1)
[2021-04-27] MEDS ORDERED: *HR* Heparin 5,000 UNIT/ML VIAL SQ SCH (06:00)
[2021-04-27 07:04] VITALS: BP 180/70
[2021-04-27] MEDS ORDERED: Furosemide 40 MG/4 ML VIAL IVP SCH (09:00)
[2021-04-27 09:45] LABS: Uric Acid 9.7 mg/dL (2.3-7.6)
== END 2021-04-27 14:50 | disposition home health service (06) ==
LOC: 2ANU 14:55 → EMEROOARM 14:55 → SUATTDRO 18:38 → 2ANU 19:19
PROVIDERS: ADMIT Family Medicine; ATTEND Family Medicine

== ENCOUNTER 2021-08-30 21:31 | Observation (INO) ==
[2021-08-30 22:35] LABS: Basophils % 0.5 %; Eosinophils % 0.3 %; Hematocrit 37.4 % (35.3-44.9); Hemoglobin 11.8 g/dL (11.5-15.4); Immature Granulocytes % 0.2 % (0-4); Lymphocytes # 0.7 K/mcL (0.6-4.6); Lymphocytes % 12.4 %; Mean Corpuscular HGB Conc 31.6 g/dL (31.6-35.5); Mean Corpuscular Hemoglobin 27.3 pg (28.0-33.3); Mean Corpuscular Volume 86.4 fL (83.0-100.0); Mean Platelet Volume 9.2 fL (9.4-12.4); Monocytes % 17.4 %; Platelet Count 202 K/mcL (140-400); Red Blood Count 4.33 M/mcL (3.82-4.97); Red Cell Distribution Width 16.2 % (11.5-14.5); Segmented Neutrophils % 69.2 %; White Blood Count 5.8 K/mcL (4.3-11.1)
[2021-08-30 23:00] LABS: Alanine Aminotransferase 12 Units/L (7-52); Albumin 3.7 g/dL (3.5-5.7); Albumin/Globulin Ratio 1.6 (1.1-2.2); Alkaline Phosphatase 68 Units/L (34-104); Aspartate Amino Transferase 23 Units/L (13-39); BUN/Creatinine Ratio 9 (6-26); Bilirubin,Direct 0.1 mg/dL (0.0-0.2); Bilirubin,Indirect 0.4 mg/dL (0.0-1.0); Bilirubin,Total 0.5 mg/dL (0.3-1.0); Blood Urea Nitrogen 37 mg/dL (8-23); Calcium 9.7 mg/dL (8.6-10.3); Carbon Dioxide 28 mEq/L (23-29); Chloride 94 mEq/L (98-107); Ethanol < 10 mg/dL (Less than 10); Globulin 2.3 g/dL (2.4-3.5); Glucose 99 mg/dL (70-105); Osmolality,Calculated 287 (280-300); Potassium 3.5 mEq/L (3.5-5.1); Sodium 134 mEq/L (136-145); Troponin I < 0.03 ng/mL (< 0.04); eGFR For African Americans 13 (> 60); eGFR For Non-African Americans 11 (> 60)
[2021-08-31 00:53] LABS: Bilirubin,Urine Negative (Negative); Blood,Urine Negative (Negative); Clarity,Urine Clear (Clear); Color,Urine Yellow (Yellow); Glucose,Urine (UA) Normal (Normal); Ketones,Urine Negative (Negative); Leukocyte Esterase,Urine Negative (Negative); Mucus,Urine Few per lpf (None-Few); Nitrite,Urine Negative (Negative); PH,Urine 6.5 pH Units (5.0-8.0); Protein,Urine 100 mg/dL (Neg-Trace); RBC,Urine 0-3 per hpf (0-3); Specific Gravity,Urine 1.011 (1.010-1.025); Urobilinogen,Urine Normal (Normal); WBC,Urine 0-3 per hpf (0-3)
[2021-08-31 00:59] LABS: Amphetamine Screen,Urine Negative ng/mL (Cutoff=1000); Barbiturate Screen,Urine Negative ng/mL (Cutoff=200); Benzodiazepines Screen,Urine Negative ng/mL (Cutoff=200); Cannabinoid Screen,Urine Negative ng/mL (Cutoff = 50); Cocaine Screen,Urine Negative ng/mL (Cutoff= 300); Opiate Screen,Urine Negative ng/mL (Cutoff=300); Phencyclidine Screen,Urine Negative ng/mL (Cutoff=25)
[2021-08-31] MEDS ORDERED: 0.9 % Sodium Chloride 1,000 ML IVC SCH (06:45)
[2021-08-31] MEDS ORDERED: Naloxone 0.4 MG/ML INJ IVP PRN (07:32)
[2021-08-31] MEDS ORDERED: Mag Hydrox/Al Hydrox/Simeth 30 ML UDC PO PRN (07:38)
[2021-08-31] MEDS ORDERED: Ondansetron ODT 4 MG TAB.RAPDIS SL PRN (07:38)
[2021-08-31] MEDS ORDERED: Melatonin 3 MG TABLET PO PRN (07:38)
[2021-08-31 08:21] LABS: Influenza A PCR Negative (Negative); Influenza B PCR Negative (Negative); Resp. Syncytial Virus PCR Negative (Negative)
[2021-08-31 08:30] LABS: SARS-CoV-2 by PCR (In House) Negative (Negative)
[2021-08-31] MEDS ORDERED: Aspirin Enteric Coated 81 MG Tablet PO SCH (09:00)
[2021-08-31 09:10] LABS: Hematocrit 35.4 % (35.3-44.9); Hemoglobin 11.4 g/dL (11.5-15.4); Mean Corpuscular HGB Conc 32.2 g/dL (31.6-35.5); Mean Corpuscular Hemoglobin 28.1 pg (28.0-33.3); Mean Corpuscular Volume 87.4 fL (83.0-100.0); Mean Platelet Volume 8.8 fL (9.4-12.4); Platelet Count 186 K/mcL (140-400); Red Blood Count 4.05 M/mcL (3.82-4.97); White Blood Count 4.2 K/mcL (4.3-11.1)
[2021-08-31 09:21] LABS: Calcium 9.5 mg/dL (8.6-10.3); Magnesium 2.2 mg/dL (1.6-2.6); Phosphorous 4.8 mg/dL (2.7-4.5); Potassium 3.3 mEq/L (3.5-5.1)
[2021-08-31] MEDS: Isosorbide MONOnitrate (24 HR) 30 MG TAB.ER.24H PO SCH (10:25)
[2021-08-31] MEDS: amLODIPine 5 MG TABLET PO SCH (10:25)
[2021-08-31] MEDS: hydrALAZINE 25 MG TABLET PO SCH ×3 (10:29→20:24)
[2021-08-31] MEDS: Furosemide 20 MG TABLET PO SCH ×2 (10:29→17:21)
[2021-08-31 11:35] LABS: Hepatitis B Surface Antibody < 3.10 mIU/mL
[2021-08-31 11:46] LABS: Hepatitis B Surface Antigen Nonreactive (Nonreactive)
[2021-08-31] MEDS ORDERED: Acetaminophen 325 MG TABLET PO ONE (13:37)
[2021-08-31] MEDS: *HR* Heparin 5,000 UNIT/ML VIAL SQ SCH (17:21)
[2021-08-31] MEDS: carvediloL 25 MG TABLET PO SCH (17:21)
[2021-08-31 19:50] VITALS: O2SAT 95
[2021-09-01 04:40] LABS: Hematocrit 34.4 % (35.3-44.9); Hemoglobin 10.8 g/dL (11.5-15.4); Mean Corpuscular HGB Conc 31.4 g/dL (31.6-35.5); Mean Corpuscular Hemoglobin 27.5 pg (28.0-33.3); Mean Corpuscular Volume 87.5 fL (83.0-100.0); Mean Platelet Volume 9.5 fL (9.4-12.4); Platelet Count 215 K/mcL (140-400); Red Blood Count 3.93 M/mcL (3.82-4.97); Red Cell Distribution Width 16.6 % (11.5-14.5); White Blood Count 5.5 K/mcL (4.3-11.1)
[2021-09-01 04:58] LABS: Calcium 8.9 mg/dL (8.6-10.3); Potassium 3.3 mEq/L (3.5-5.1)
[2021-09-01] MEDS: *HR* Heparin 5,000 UNIT/ML VIAL SQ SCH (05:21)
[2021-09-01 08:15] VITALS: BP 150/73; PULSE 63; TEMP 98
[2021-09-01 09:12] LABS: INR 1.1; Prothrombin Time 11.7 Seconds (9.4-12.1)
[2021-09-01] MEDS: Furosemide 20 MG TABLET PO SCH (09:42)
[2021-09-01] MEDS: amLODIPine 5 MG TABLET PO SCH (09:43)
[2021-09-01] MEDS: Isosorbide MONOnitrate (24 HR) 30 MG TAB.ER.24H PO SCH (09:43)
[2021-09-01] MEDS: carvediloL 25 MG TABLET PO SCH (09:43)
[2021-09-01] MEDS: hydrALAZINE 25 MG TABLET PO SCH (09:43)
== END 2021-09-01 10:26 | disposition home health service (06) ==
LOC: 2ANU 21:31 → EMEROOARM 21:31 → SUATTDRO 08-31 06:45 → 2ANU 08-31 08:14
PROVIDERS: ADMIT Family Medicine; ATTEND Hospitalist

== ENCOUNTER 2021-09-02 15:36 | Inpatient (IN) ==
[2021-09-02 17:35] LABS: Amphetamine Screen,Urine Negative ng/mL (Cutoff=1000); Barbiturate Screen,Urine Negative ng/mL (Cutoff=200); Benzodiazepines Screen,Urine Negative ng/mL (Cutoff=200); Cannabinoid Screen,Urine Negative ng/mL (Cutoff = 50); Cocaine Screen,Urine Negative ng/mL (Cutoff= 300); Opiate Screen,Urine Negative ng/mL (Cutoff=300); Phencyclidine Screen,Urine Negative ng/mL (Cutoff=25)
[2021-09-02 17:37] LABS: Bacteria,Urine Few per hpf (None-Few); Bilirubin,Urine Negative (Negative); Blood,Urine Negative (Negative); Clarity,Urine Turbid (Clear); Color,Urine Yellow (Yellow); Glucose,Urine (UA) Normal (Normal); Ketones,Urine Negative (Negative); Leukocyte Esterase,Urine Large (Negative); Nitrite,Urine Negative (Negative); PH,Urine 6.5 pH Units (5.0-8.0); Protein,Urine 100 mg/dL (Neg-Trace); RBC,Urine 0-3 per hpf (0-3); Urobilinogen,Urine Normal (Normal); WBC,Urine 15-30 per hpf (0-3)
[2021-09-02 17:37] LABS: Acetaminophen < 10 mcg/mL (10-20); Alanine Aminotransferase 11 Units/L (7-52); Albumin 3.8 g/dL (3.5-5.7); Albumin/Globulin Ratio 1.7 (1.1-2.2); Alkaline Phosphatase 67 Units/L (34-104); Aspartate Amino Transferase 27 Units/L (13-39); BUN/Creatinine Ratio 11 (6-26); Bilirubin,Direct 0.1 mg/dL (0.0-0.2); Bilirubin,Indirect 0.4 mg/dL (0.0-1.0); Bilirubin,Total 0.5 mg/dL (0.3-1.0); Blood Urea Nitrogen 45 mg/dL (8-23); Calcium 9.9 mg/dL (8.6-10.3); Carbon Dioxide 30 mEq/L (23-29); Chloride 96 mEq/L (98-107); Ethanol < 10 mg/dL (Less than 10); Globulin 2.3 g/dL (2.4-3.5); Glucose 93 mg/dL (70-105); Osmolality,Calculated 295 (280-300); Potassium 3.6 mEq/L (3.5-5.1); Salicylate < 2.5 mg/dL (15.0-30.0); Sodium 137 mEq/L (136-145); Total Protein 6.1 g/dL (6.4-8.9); eGFR For African Americans 12 (> 60); eGFR For Non-African Americans 10 (> 60)
[2021-09-02 18:01] LABS: Basophils % 0.2 %; Eosinophils % 0.5 %; Hematocrit 36.2 % (35.3-44.9); Hemoglobin 11.3 g/dL (11.5-15.4); Immature Granulocytes % 0.3 % (0-4); Lymphocytes # 0.9 K/mcL (0.6-4.6); Lymphocytes % 14.1 %; Mean Corpuscular HGB Conc 31.2 g/dL (31.6-35.5); Mean Corpuscular Hemoglobin 27.4 pg (28.0-33.3); Mean Corpuscular Volume 87.9 fL (83.0-100.0); Mean Platelet Volume 8.7 fL (9.4-12.4); Monocytes # 0.9 K/mcL (0.0-1.3); Monocytes % 14.8 %; Neutrophils # 4.2 K/mcL (1.6-8.9); Platelet Count 221 K/mcL (140-400); Red Blood Count 4.12 M/mcL (3.82-4.97); Segmented Neutrophils % 70.1 %
[2021-09-02] MEDS ORDERED: cefTRIAXone 1,000 MG in Water for inj. (sterile) 10 ML IVP ONE (19:18)
[2021-09-02] MEDS ORDERED: Melatonin 3 MG TABLET PO PRN (20:00)
[2021-09-02] MEDS ORDERED: Naloxone 0.4 MG/ML INJ IVP PRN (20:00)
[2021-09-02] MEDS ORDERED: Ondansetron 4 MG/2 ML VIAL IVP PRN (20:00)
[2021-09-02] MEDS ORDERED: Acetaminophen 325 MG TABLET PO PRN (20:00)
[2021-09-03] MEDS: cefTRIAXone 1,000 MG in 0.9 % Sodium Chloride Mini Bag 100 ML IVPB SCH ×3 (08:57→14:35)
[2021-09-03] MEDS: hydrALAZINE 25 MG TABLET PO SCH (17:32)
[2021-09-03] MEDS: carvediloL 25 MG TABLET PO SCH (17:33)
[2021-09-03] MEDS: Mirtazapine 15 MG TABLET PO SCH (20:54)
[2021-09-03] MEDS: Carbidopa/Levodopa 25/100 TABLET PO SCH (20:54)
[2021-09-03] MEDS ORDERED: hydrALAZINE 25 MG TABLET PO SCH (21:00)
[2021-09-03] MEDS ORDERED: NON-FORMULARY MEDICATION 1 EACH EACH (Hydralazine Hcl 50 MG Tablet) PO SCH (21:00)
[2021-09-04] MEDS: hydrALAZINE 25 MG TABLET PO SCH ×3 (09:53→19:53)
[2021-09-04] MEDS: Isosorbide MONOnitrate (24 HR) 30 MG TAB.ER.24H PO SCH (09:53)
[2021-09-04] MEDS: cefTRIAXone 1,000 MG in 0.9 % Sodium Chloride Mini Bag 100 ML IVPB SCH (09:53)
[2021-09-04] MEDS: Carbidopa/Levodopa 25/100 TABLET PO SCH ×2 (09:53→19:53)
[2021-09-04] MEDS: carvediloL 25 MG TABLET PO SCH ×2 (09:53→15:57)
[2021-09-04] MEDS: Multivit/Ca/Min/Fe/FA 1 TAB TABLET PO SCH (09:53)
[2021-09-04] MEDS: Aspirin Enteric Coated 81 MG Tablet PO SCH (09:53)
[2021-09-04 13:02] LABS: Calcium 9.9 mg/dL (8.6-10.3); Potassium 3.5 mEq/L (3.5-5.1)
[2021-09-04] MEDS: Piperacillin/Tazobactam 3.375 GM in 0.9 % Sodium Chloride Mini Bag 100 ML IVPB SCH (14:25)
[2021-09-04] MEDS ORDERED: NIFEdipine XL (24 HR) 60 MG TAB.ER.24 PO SCH (18:45)
[2021-09-04] MEDS ORDERED: NIFEdipine Immed Rel 10 MG CAPSULE PO ONE (19:10)
[2021-09-04] MEDS ORDERED: NIFEdipine Immed Rel 10 MG CAPSULE SL ONE (19:15)
[2021-09-04] MEDS ORDERED: NIFEdipine Immed Rel 10 MG CAPSULE SL SCH (19:30)
[2021-09-04] MEDS: Mirtazapine 15 MG TABLET PO SCH (19:53)
[2021-09-04] MEDS: NIFEdipine Immed Rel 10 MG CAPSULE PO SCH (20:08)
[2021-09-05] MEDS: Piperacillin/Tazobactam 3.375 GM in 0.9 % Sodium Chloride Mini Bag 100 ML IVPB SCH ×3 (00:15→22:24)
[2021-09-05 02:23] LABS: Calcium 9.4 mg/dL (8.6-10.3); Potassium 3.5 mEq/L (3.5-5.1)
[2021-09-05] MEDS: NIFEdipine Immed Rel 10 MG CAPSULE PO SCH (08:00)
[2021-09-05] MEDS: carvediloL 25 MG TABLET PO SCH ×2 (08:01→16:04)
[2021-09-05] MEDS: Isosorbide MONOnitrate (24 HR) 30 MG TAB.ER.24H PO SCH (08:01)
[2021-09-05] MEDS: Multivit/Ca/Min/Fe/FA 1 TAB TABLET PO SCH (08:01)
[2021-09-05] MEDS: Aspirin Enteric Coated 81 MG Tablet PO SCH (08:01)
[2021-09-05] MEDS: Carbidopa/Levodopa 25/100 TABLET PO SCH ×2 (08:01→20:20)
[2021-09-05] MEDS: hydrALAZINE 25 MG TABLET PO SCH ×3 (08:01→20:19)
[2021-09-05] MEDS: Lactobacillus 1 EACH CAP.SPRINK PO SCH (16:04)
[2021-09-05] MEDS: Mirtazapine 15 MG TABLET PO SCH (20:17)
[2021-09-06 01:40] LABS: Basophils % 0.3 %; Eosinophils # 0.3 K/mcL (0.0-0.6); Eosinophils % 4.3 %; Hematocrit 34.9 % (35.3-44.9); Hemoglobin 11.1 g/dL (11.5-15.4); Immature Granulocytes % 0.4 % (0-4); Lymphocytes # 1.1 K/mcL (0.6-4.6); Mean Corpuscular HGB Conc 31.8 g/dL (31.6-35.5); Mean Corpuscular Hemoglobin 27.7 pg (28.0-33.3); Monocytes # 0.9 K/mcL (0.0-1.3); Monocytes % 12.1 %; Neutrophils # 5.2 K/mcL (1.6-8.9); Platelet Count 212 K/mcL (140-400); Red Blood Count 4.01 M/mcL (3.82-4.97); Red Cell Distribution Width 17.7 % (11.5-14.5); Segmented Neutrophils % 67.9 %; White Blood Count 7.6 K/mcL (4.3-11.1)
[2021-09-06 02:09] LABS: Calcium 8.8 mg/dL (8.6-10.3); Potassium 3.5 mEq/L (3.5-5.1)
[2021-09-06] MEDS: hydrALAZINE 25 MG TABLET PO SCH ×3 (07:01→20:27)
[2021-09-06] MEDS: NIFEdipine XL (24 HR) 30 MG TAB.ER.24 PO SCH (07:38)
[2021-09-06] MEDS: Isosorbide MONOnitrate (24 HR) 30 MG TAB.ER.24H PO SCH (07:38)
[2021-09-06] MEDS: Lactobacillus 1 EACH CAP.SPRINK PO SCH (07:38)
[2021-09-06] MEDS: Carbidopa/Levodopa 25/100 TABLET PO SCH ×2 (07:39→20:27)
[2021-09-06] MEDS: Aspirin Enteric Coated 81 MG Tablet PO SCH (07:39)
[2021-09-06] MEDS: carvediloL 25 MG TABLET PO SCH ×2 (07:39→15:44)
[2021-09-06] MEDS: Multivit/Ca/Min/Fe/FA 1 TAB TABLET PO SCH (07:39)
[2021-09-06] MEDS ORDERED: Perit. Dialysis with Dex 2.5 % 6,000 ML PERITONEAL ONE (10:45)
[2021-09-06] MEDS: Piperacillin/Tazobactam 3.375 GM in 0.9 % Sodium Chloride Mini Bag 100 ML IVPB SCH ×2 (11:55→22:48)
[2021-09-06] MEDS: Mirtazapine 15 MG TABLET PO SCH (20:27)
[2021-09-07 01:53] LABS: Calcium 9.1 mg/dL (8.6-10.3); Potassium 3.5 mEq/L (3.5-5.1)
[2021-09-07] MEDS ORDERED: Perit. Dialysis with Dex 2.5 % 12,000 ML PERITONEAL ONE (07:37)
[2021-09-07] MEDS: carvediloL 25 MG TABLET PO SCH ×2 (08:43→16:40)
[2021-09-07] MEDS: Aspirin Enteric Coated 81 MG Tablet PO SCH (08:43)
[2021-09-07] MEDS: Carbidopa/Levodopa 25/100 TABLET PO SCH ×2 (08:44→21:01)
[2021-09-07] MEDS: Isosorbide MONOnitrate (24 HR) 30 MG TAB.ER.24H PO SCH (08:44)
[2021-09-07] MEDS: Multivit/Ca/Min/Fe/FA 1 TAB TABLET PO SCH (08:44)
[2021-09-07] MEDS: Lactobacillus 1 EACH CAP.SPRINK PO SCH (08:44)
[2021-09-07] MEDS: hydrALAZINE 25 MG TABLET PO SCH ×3 (08:44→21:00)
[2021-09-07] MEDS: NIFEdipine XL (24 HR) 30 MG TAB.ER.24 PO SCH (08:44)
[2021-09-07] MEDS: Piperacillin/Tazobactam 3.375 GM in 0.9 % Sodium Chloride Mini Bag 100 ML IVPB SCH ×2 (10:02→23:31)
[2021-09-07] MEDS: Mirtazapine 15 MG TABLET PO SCH (21:01)
[2021-09-08 03:50] VITALS: O2SAT 96
[2021-09-08 06:47] VITALS: BP 196/67; PULSE 70; TEMP 98
[2021-09-08] MEDS ORDERED: Perit. Dialysis with Dex 2.5 % 12,000 ML PERITONEAL ONE (07:00)
[2021-09-08] MEDS ORDERED: *HR* Labetalol 20 MG/4 ML SYRINGE IVP ONE (07:04)
[2021-09-08] MEDS ORDERED: NIFEdipine XL (24 HR) 30 MG TAB.ER.24 PO SCH (09:00)
[2021-09-08] MEDS: hydrALAZINE 25 MG TABLET PO SCH (10:08)
[2021-09-08] MEDS: Lactobacillus 1 EACH CAP.SPRINK PO SCH (10:08)
[2021-09-08] MEDS: Multivit/Ca/Min/Fe/FA 1 TAB TABLET PO SCH (10:08)
[2021-09-08] MEDS: Isosorbide MONOnitrate (24 HR) 30 MG TAB.ER.24H PO SCH (10:08)
[2021-09-08] MEDS: Aspirin Enteric Coated 81 MG Tablet PO SCH (10:08)
[2021-09-08] MEDS: carvediloL 25 MG TABLET PO SCH (10:08)
[2021-09-08] MEDS: Carbidopa/Levodopa 25/100 TABLET PO SCH (10:08)
[2021-09-08] MEDS: Piperacillin/Tazobactam 3.375 GM in 0.9 % Sodium Chloride Mini Bag 100 ML IVPB SCH (10:27)
== END 2021-09-08 13:27 | disposition home health service (06) | DRG 689 ==
LOC: 2ANU 15:36 → EMEROOARM 15:36 → SUATTDRO 19:42 → 2ANU 20:19
PROVIDERS: ADMIT Student in an Organized Health Care Education/Training Program; ATTEND Internal Medicine